=== PATIENT | female | born 1975 | race Caucasian/White ===

== ENCOUNTER → 2018-11-29 | Day surgery (SDC) | payer OTHER ==
--- NOTE | 2018-11-30 15:22 | OP ---
DATE OF OPERATION: 11/29/2018 PREOPERATIVE DIAGNOSIS: Abnormal right mammography. POSTOPERATIVE DIAGNOSIS: Abnormal right mammography. PROCEDURE: Right stereotactic needle biopsy with clips. SURGEON: Alysia Castorena MD ANESTHESIA: Local. COMPLICATIONS: None. This was a sterile procedure. INDICATIONS FOR PROCEDURE: Patient presented with a routine screening mammography that noted an area of increasing coarse microcalcifications in the retroareolar right breast since last year and new since 2011. Therefore, recommendation is needle biopsy. The procedure was discussed with all the questions answered. PROCEDURE IN DETAIL: Patient was brought to [facility]. Wendy Angel, laid prone on the Lor[place] table. First we tried the cranial approach to localize the calcifications. However, the numbers did not make sense. Therefore, we then used the lateral approach. A sterile prep was obtained, a target was chosen, and there was a positive stroke margin. Using Betadine and 1% lidocaine, a petite Suros needle was used to take several samples from this area. Cores showed calcifications within them. These were handled with the usual calcification protocol. A petite clip was deployed in the area. Hemostasis was assured with direct pressure, and the incision was closed with Steri-Strips. She tolerated the procedure well and left the breast imaging center in good condition. ALYSIA CASTORENA M.D. [id number]
--- NOTE | 2018-11-30 15:29 | PATH ---
Surgical Pathology Report Patient Name: YAMILA RIVERA [facility]. Rec. #: [id number] /Age/Gender: 1975 (Age: 43) / F Account: [id number] Location: [facility] Taken: 11/29/2018 Received: 11/29/2018 Reported: 11/30/2018 Physicians: Niecy Greenberg M.D. Specimen(s) Received A: LEFT BREAST SPECIMEN WITH CALCIFICATIONS B: LEFT BREAST SPECIMEN WITHOUT CALCIFICATIONS Clinical History Nonpalpable lesion Mammographic findings: Microcalcification, suspicious Final Diagnosis A. LEFT BREAST SPECIMEN WITH CALCIFICATIONS, STEREOTACTIC BIOPSY: BREAST TISSUE WITH INTRADUCTAL PAPILLOMA AND ASSOCIATED MICROCALCIFICATIONS. PROLIFERATIVE FIBROCYSTIC CHANGES WITH USUAL DUCTAL HYPERPLASIA, APOCRINE METAPLASIA, AND STROMAL FIBROSIS PRESENT. B. LEFT BREAST SPECIMEN WITHOUT CALCIFICATIONS, STEREOTACTIC BIOPSY: BREAST TISSUE WITH FRAGMENTED INTRADUCTAL PAPILLOMA. PROLIFERATIVE FIBROCYSTIC CHANGES WITH USUAL DUCTAL HYPERPLASIA, APOCRINE METAPLASIA, AND STROMAL FIBROSIS PRESENT. Electronically Signed Andrew Downey M.D. Gross Description A. Received in formalin labeled "left breast with calcifications," are 3 hinojosa-yellow, cylindrical portions of fibroadipose tissue averaging 1.5 cm in length and 0.1 cm in diameter. The specimens are submitted in toto in one cassette. B. Received in formalin labeled "left breast without calcifications," are 13 hinojosa-yellow, cylindrical portions of fibroadipose tissue ranging from 0.6-1.6 cm in length and averaging 0.3 cm in diameter. The specimens are submitted in toto in 2 cassettes. Time to formalin fixation: 5 minutes Total formalin fixation time: Approximately 7 hours. /11/29/2018 [facility]11/29/2018
== END | disposition home or self-care (01) ==
LOC: FMAMMOTONE 10:00
PROVIDERS: ATTEND Surgery
PROC: 0HBU3ZX Excision of Left Breast, Percutaneous Approach, Diagnostic (ICD-10-PCS; principal; 2018-11-29)
DX: D24.2 Benign neoplasm of left breast (principal); N60.82 Other benign mammary dysplasias of left breast; N60.32 Fibrosclerosis of left breast; N64.89 Other specified disorders of breast
CPT/HCPCS: 19081; 87899; 88305-TC; A4648

== ENCOUNTER 2019-02-09 07:09 | Day surgery (SDC) | payer OTHER ==
[2019-02-08 17:54] VITALS: BMI 30.2
[2019-02-09] MEDS ORDERED: PROPOFOL 20 ML ONE ×2 (10:29→11:57)
[2019-02-09] MEDS ORDERED: MIDAZOLAM HCL 2 MG/2 ML SINGLE DOSE VIAL ONE ×3 (10:30→11:58)
[2019-02-09] MEDS ORDERED: LIDOCAINE HCL 1%, 10 MG/ML (20ML VIAL) ONE (10:30)
[2019-02-09] MEDS ORDERED: KETOROLAC TROMETHAMINE 30 MG/1 ML VIAL ONE (11:57)
[2019-02-09] MEDS ORDERED: DEXAMETHASONE SOD PHOSPHATE 4 MG/1 ML VIAL ONE (11:57)
[2019-02-09] MEDS ORDERED: LIDOCAINE HCL/PF 2% SDV 5ML VIAL ONE (11:57)
[2019-02-09] MEDS ORDERED: ceFAZolin SODIUM 1 GM VIAL IVPB ONE (12:00)
[2019-02-09] MEDS ORDERED: LIDOCAINE HCL 1%, 10 MG/ML (20ML VIAL) SNB ONE (12:31)
[2019-02-09] MEDS ORDERED: oxyCODONE HCL 5 MG TABLET PO PRN (12:46)
[2019-02-09] MEDS ORDERED: ONDANSETRON 4 MG/2 ML VIAL IVPUSH PRN (12:46)
[2019-02-09] MEDS ORDERED: PROMETHAZINE HCL 25 MG/1 ML VIAL IVPB PRN (12:46)
[2019-02-09] MEDS ORDERED: LACTATED RINGERS SOLUTION 1,000 ML IV SCH (13:00)
--- NOTE | 2019-02-09 13:59 | OP ---
DATE OF OPERATION: 02/09/2019 PREOPERATIVE DIAGNOSIS: Left breast intraductal papilloma. POSTOPERATIVE DIAGNOSIS: Left breast intraductal papilloma. PROCEDURE: A left breast wide-localized excision of papilloma. SURGEON: Niecy Greenberg MD ANESTHESIA: Local, IV sedation. ESTIMATED BLOOD LOSS: Minimal. COMPLICATIONS: None. This is a sterile procedure. . Patient had a left breast needle-core biopsy in the upper outer retroareolar location and pathology showed an intraductal papilloma. My recommendation was an excision. The procedure discussed with all the questions answered. PROCEDURE IN DETAIL: Patient was taken to Radiology where a wire was used to localize a clip in the retroareolar upper outer left breast. She was then brought to the operating room. After IV sedation and IV antibiotics, her left breast was prepped in the usual sterile fashion. The area in the upper outer retroareolar location was anesthetized with 1% lidocaine without epinephrine. A periareolar incision was made in the outer left breast and the wire was used as a guide to get down to the area which was excised en bloc and sent for specimen radiograph. Hemostasis assured with electrocautery. interrupted 2-0 Vicryl. Skin approximated with interrupted 3-0 Vicryl and running 4-0 Prolene. A sterile dressing with Tegaderm, 4 x 4's applied. The specimen radiograph showed the clip and wire to be intact within the specimen. This was sent to Pathology for permanent section. She tolerated procedure well and was taken to recovery in good condition. Amita [id number]
[2019-02-09] MEDS ORDERED: ACETAMINOPHEN 325 MG TABLET (FP) ONE (15:14)
[2019-02-09] MEDS ORDERED: ONDANSETRON 4 MG/2 ML VIAL ONE (16:13)
[2019-02-09 18:05] VITALS: BP 107/61; PULSE 84; TEMP 98.2
--- NOTE | 2019-02-14 15:29 | PATH ---
Surgical Pathology Report Patient Name: YAMILA RIVERA [facility]. Rec. #: [id number] /Age/Gender: 1975 (Age: 43) / F Account: [id number] Location: [facility] Taken: 02/09/2019 Received: 02/09/2019 Reported: 02/14/2019 Physicians: Niecy Greenberg M.D. Specimen(s) Received LEFT BREAST EXCISION, MASS Clinical History Intraductal papilloma Final Diagnosis BREAST, MASS, LEFT, EXCISION: BENIGN BREAST PARENCHYMA WITH CHANGES OF PRIOR BIOPSY IN A BACKGROUND OF FIBROCYSTIC CHANGES INCLUDING STROMAL FIBROSIS, MICROCYSTS, USUAL DUCTAL HYPERPLASIA, PERIDUCTAL CHRONIC INFLAMMATION, ECTATIC DUCTS, AND RARE MICROCALCIFICATIONS. Electronically Signed Christelle Mcgrath M.D. Gross Description Received fresh on an AccuGrid, labeled "left breast excision of mass" is a 4 x 2 x 1.5 cm. hinojosa-yellow, irregular, portion of fibroadipose tissue with a needle localization wire present. There is no skin or nipple present. The specimen is undesignated and entire outer surface is inked in black. The specimen is serially sectioned. Sectioning reveals a predominantly fibrous surface with areas of hemorrhage. No lesions/mass identified. The entire specimen is submitted sequentially in 5 cassettes (2-4- hemorrhagic area). Total formalin fixation time: Approximately 6 hours. MLSZ/02/09/2019 donnell/02/09/2019
== END 2019-02-09 18:06 | disposition home or self-care (01) ==
LOC: JASU-SURG 07:09
PROVIDERS: ATTEND Surgery
PROC: 0HBU0ZZ Excision of Left Breast, Open Approach (ICD-10-PCS; principal; 2019-02-09 10:00)
DX: D24.2 Benign neoplasm of left breast (principal)
CPT/HCPCS: 19281; 84703; 88307-TC; 94760